=== PATIENT | female | born 1990 | race Caucasian/White ===

== ENCOUNTER 2017-03-28 21:26 | Emergency (ER) | payer OTHER ==
[2017-03-28] MEDS ORDERED: PAROXETINE HCL20 M1 PO (21:39)
[2017-03-28] MEDS ORDERED: ALPRAZOLAM0.25 M1 PO (21:39)
[2017-03-28] MEDS ORDERED: LANSOPRAZOLE30 M2 PO (21:39)
[2017-03-28] MEDS ORDERED: ROBAXIN-750750 M1 PO (23:07)
[2017-03-28] MEDS ORDERED: IBUPROFEN800 M1 PO (23:07)
[2017-03-28 23:08] VITALS: BP 146/93
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
== END 2017-03-28 23:13 ==
LOC: ERH 21:26
DX: M54.5 Low back pain (principal); M54.2 Cervicalgia; V89.2XXA Person injured in unspecified motor-vehicle accident, traffic, initial encounter